=== PATIENT | female | born 1990 | race Two or more races ===

== ENCOUNTER 2023-04-12 14:00 | Inpatient (IN) | payer OTHER ==
[~2023-04-12] VITALS: Ht 162.6 cm; Wt 3.2 kg
[2023-04-24] MEDS ORDERED: IRON325 MG PO (05:22)
[2023-04-24] MEDS ORDERED: PRENATAL TABLE1 EAC1 PO (05:22)
== END 2023-04-27 14:03 | disposition home or self-care (01) | DRG 788 ==
LOC: LDR 04-24 04:38 → OB/GYN 04-24 04:38 → O/R 04-24 17:53 → OB/GYN 04-24 18:38
PROVIDERS: ADMIT Specialist; ATTEND Specialist
PROC: 4A1HXCZ Monitoring of Products of Conception, Cardiac Rate, External Approach (ICD-10-PCS; 2023-04-24)
PROC: 3E033VJ Introduction of Other Hormone into Peripheral Vein, Percutaneous Approach (ICD-10-PCS; 2023-04-24)
PROC: 3E0P7VZ Introduction of Hormone into Female Reproductive, Via Natural or Artificial Opening (ICD-10-PCS; 2023-04-24)
PROC: 10D00Z1 Extraction of Products of Conception, Low, Open Approach (ICD-10-PCS; principal; 2023-04-24 18:45)
DX: O33.8 Maternal care for disproportion of other origin (principal); Z3A.39 39 weeks gestation of pregnancy; Z37.0 Single live birth; Z20.822 Contact with and (suspected) exposure to COVID-19